=== PATIENT | male | born 1955 | race Caucasian/White ===

== ENCOUNTER → 2023-07-14 11:42 | Outpatient (BNVA) | payer MEDICARE, SELFPAY | PROVIDERS: Visit Provider Orthopaedic Surgery | DX: M54.50 Low back pain, unspecified (principal); M48.062 Spinal stenosis, lumbar region with neurogenic claudication | CPT/HCPCS: 72110; 99204 ==

== ENCOUNTER → 2024-11-22 13:23 | Outpatient (BNVA) | payer MEDICARE, SELFPAY | PROVIDERS: Visit Provider Orthopaedic Surgery | DX: M48.062 Spinal stenosis, lumbar region with neurogenic claudication (principal) | CPT/HCPCS: 36415; 80053; 81001; 85025; 99214 ==

== ENCOUNTER 2024-12-10 08:49 | Day surgery (SDC) | payer MEDICARE, SELFPAY ==
[2024-12-10] VITALS (10 sets, daily range): BP systolic 81–130; BP diastolic 58–78; PULSE 63–74; RESP 10–21; TEMP 35.7–36.5; O2SAT 93–99; BMI 41.5
[2024-12-10] MEDS: insulin regular-human 100 units/1 mL 10 UNIT IVP (10:21)
--- NOTE | 2024-12-10 10:26 | ANES.PREANE2 ---
Pre-Anesthetic Assessment Height/Weight: Height 6 ft 6 in Weight 360 lb Temp Pulse Resp BP Pulse Ox O2 Del Method 97.7 F 74 16 128/62 95 Room Air 12/10/24 09:27 12/10/24 09:27 12/10/24 09:27 12/10/24 09:27 12/10/24 09:27 12/10/24 09:27 Preop Diagnosis: Lumbar stenosis with neurogenic claudication Operation Date: 12/10/24 10:45 Proposed Procedures p Lumbar Spine Decompression(Not Applicable) - Vladislav Zimmer, DO Was Beta Candie taken within 24 hours: N/A Was Clonidine taken within 24 hours: N/A Last intake: Intake Last Liquid Date 12/09/24 Last Liquid Time 19:00 Last Solid Date 12/09/24 Last Solid Time 19:00 Social No alcohol and No tobacco Exam alert, oriented x 3, clear to auscultation bilaterally and regular rate & rhythm Airway Submandibular: within normal limits Cervical ROM: within normal limits Mallampati: Class III Dentition: full Anesthetic Plan ASA status: 3 Anesthesia: General Other: No prior issues with anesthesia NPO since yesterday evening History of of hypertension on HCTZ and valsartan BMI 41.6 DAKOTAH, no tx IDDM, patient was reportedly told to hold his long-acting insulin for the last week. Preop BS 273. Will plan on treating with insulin and rechecking prior to going to the OR Labs from 11/22/2024 reviewed acceptable for procedure. NA 139, K+ 4.3. Creatinine 1.3 at that time Plan for GETA Medications/Allergies Home Medications ?Medication ?Instructions ?Recorded ?Confirmed ?Last Taken ?Type atorvastatin 40 mg tablet 40 mg PO DAILY 07/14/23 12/07/24 12/07/24 History dapagliflozin propanediol 10 mg 10 mg PO QAM 07/14/23 12/07/24 12/07/24 History tablet (Farxiga) diltiazem HCl 120 mg capsule,24 120 mg PO DAILY 07/14/23 12/07/24 12/07/24 History hr,extended release gabapentin 100 mg capsule 100 mg PO TID 07/14/23 12/07/24 12/07/24 History hydrochlorothiazide 25 mg tablet 25 mg PO DAILY 07/14/23 12/07/24 12/07/24 History insulin degludec 200 unit/mL (3 See Rx Instructions SUBCUT DAILY 07/14/23 12/07/24 12/03/24 History mL) subcutaneous pen (Tresiba FlexTouch U-200 insulin) insulin lispro 200 unit/mL (3 mL) 20 unit SUBCUT BID 07/14/23 12/07/24 12/07/24 History subcutaneous pen (Humalog KwikPen U-200 Insulin) levothyroxine 75 mcg capsule 75 mcg PO DAILY 07/14/23 12/07/24 12/07/24 History metformin 500 mg tablet 500 mg PO BID 07/14/23 12/07/24 12/07/24 History rivaroxaban 20 mg tablet (Xarelto) 20 mg PO DAILY 07/14/23 12/07/24 12/02/24 History tirzepatide 5 mg/0.5 mL mg SUBCUT 07/14/23 11/22/24 12/02/24 History subcutaneous pen injector (Catrachounkimro) valsartan 80 mg tablet 80 mg PO DAILY 07/14/23 12/07/24 12/07/24 History Allergies Allergy/AdvReac Type Severity Reaction Status Date / Time No Known Allergies Allergy Verified 12/10/24 09:25 Current Medications Generic Name Dose Route Start Last Admin Trade Name Freq PRN Reason Stop Dose Admin Sodium Chloride 1,000 mls @ 30 mls/hr 12/10/24 09:15 12/10/24 09:53 Sodium Chloride 0.9% IV 12/11/24 09:14 30 mls/hr .Q24H NIKKIE Administration PFSH Anesthesia Social History Smoking and tobacco/nicotine status: never used tobacco/nicotine
--- NOTE | 2024-12-10 10:38 | W.PM.OPSUD ---
Surgery/Procedure H&P Update DATE OF PROCEDURE: December 10, 2024 DATE H&P PERFORMED: 11/22/24 H&P UPDATE INFORMATION: I have reviewed H&P completed within last 30 days, I have examined patient prior to procedure and No changes to prior documentation PREOP DIAGNOSIS: Lumbar stenosis with neurogenic claudication PLANNED PROCEDURE: Operation Date: 12/10/24 10:45 Proposed Procedures p Lumbar Spine Decompression(Not Applicable) - Vladislav Zimmer DO
[2024-12-10] MEDS: insulin regular-human 100 units/1 mL 20 UNIT IVP (10:59)
[2024-12-10] MEDS: ceFAZolin 3,000 MG in sodium chloride 0.9% (plus) 100 ML 200 MG IV (11:27)
[2024-12-10] MEDS: lidocaine-epi 1% 20 mL INJ 10 ML INJECTION (12:17)
--- NOTE | 2024-12-10 12:31 | PC.NURSE ---
Skin Tear While positioning patient into the prone position, patient developed a skin tear to the left lower arm. Site was dressed with an optifoam dressing.
--- NOTE | 2024-12-10 13:38 | P.OP_ITS ---
Operative Report Date of procedure: December 10, 2024 Pre-op diagnosis: Lumbar stenosis with neurogenic claudication Post-op diagnosis: same Procedure done: 1. L3/4 laminectomy with partial facetectomy 2. L4/5 laminectomy with partial facetectomy 3. L5/S1 laminectomy with partial facetectomy Surgeon: Vladislav Zimmer DO Estimated blood loss (mL): 15 Procedure: 1. L3/4 laminectomy with partial facetectomy 2. L4/5 laminectomy with partial facetectomy 3. L5/S1 laminectomy with partial facetectomy Patient is brought to the operative suite. After undergoing anesthesia they are placed in the prone position. All areas of impingement are well padded. Patient is then prepped and draped in the normal sterile fashion. A skin incision is made over the L3/4 level. This is confirmed under c-arm guidance. A series of dilators are passed and the tubular retractor is docked on the L3 lamina. A bovie is used to clear the soft tissue off the lamina and the L 3/4 facet joint. A high speed carmen is then used to perform the laminectomy and take down the medial aspect of the L 3/4 facet joint. A kerrison rongeure was then used to take down the remaining lamina and smooth the edge of the laminectomy up to the point where the ligamentum flavum attaches. Attention was then brought to the medial aspect of the facet joint. The remaining medial aspect of the superior and inferior aspect of the facet joint were taken down with the kerrison from the pedicle of L3 to L 4. The facet munira nt had significant hypertrophy. Attention was then brought to the Ligamentum Flavum. The ligament was taken down from the lamina of L3 to L4 and out medially to the remaining facet joint. The ligament was thick. The dura was then exposed. The dura was in good repair. The L4 nerve was then traced with a curette out the L3/4 foramen and found to be adequately decompressed. The L4 nerve was traced with a curette around the L4 pedicle. The lateral recess was opened with a kerrison helping to further decompress the L4 nerve. Wound is then irrigated copiously with saline and surgiflo is used to stop any bleeding. The tubular retractor is removed A skin incision is made over the L4/5 level. This is confirmed under c-arm guidance. A series of dilators are passed and the tubular retractor is docked on the L4 lamina. A bovie is used to clear the soft tissue off the lamina and the L 4/5 facet joint. A high speed carmen is then used to perform the laminectomy and take down the medial aspect of the L 4/5 facet joint. A kerrison rongeure was then used to take down the remaining lamina and smooth the edge of the laminectomy up to the point where the ligamentum flavum attaches. Attention was then brought to the medial aspect of the facet joint. The remaining medial aspect of the superior and inferior aspect of the facet joint were taken down with the kerrison from the pedicle of L4 to L 5. The facet joint had significant hypertrophy. Attention was then brought to the Ligamentum Flavum. The ligament was taken down from the lamina of L4 to L5 and out medially to the remaining facet joint. The ligament was thick. The dura was then exposed. The dura was in good repair. The L5 nerve was then traced with a curette out the L4/5 foramen and found to be adequately decompressed. The L5 nerve was traced with a curette around the L5 pedicle. The lateral recess was opened with a kerrison helping to further decompress the L5 nerve. Wound is then irrigated copiously with saline and surgiflo is used to stop any bleeding. The tubular retractor is removed A skin incision is made over the L5/S1 level. This is confirmed under c-arm guidance. A series of dilators are passed and the tubular retractor is docked on the L5 lamina. A bovie is used to clear the soft tissue off the lamina and the L 5/S1 facet joint. A high speed carmen is then used to perform the laminectomy and take down the medial aspect of the L 5/S1 facet joint. A kerrison rongeure was then used to take down the remaining lamina and smooth the edge of the laminectomy up to the point where the ligamentum flavum attaches. Attention was then brought to the medial aspect of the facet joint. The remaining medial aspect of the superior and inferior aspect of the facet joint were taken down with the kerrison from the pedicle of L5 to S1. The facet joint had significant hypertrophy. Attention was then brought to the Ligamentum Flavum. The ligament was taken down from the lamina of L5 to S1 and out medially to the remaining facet joint. The ligament was thick. The dura was then exposed. The dura was in good repair. The L5 nerve was then traced with a curette out the L5/S1 foramen and found to be adequately decompressed. The S1 nerve was traced with a curette around the S1 pedicle. The lateral recess was opened with a kerrison helping to further decompress the S1 nerve. Wound is then irrigated copiously with saline and surgiflo is used to stop any bleeding. The tubular retractor is removed and the wound is closed with vicryl and monocryl suture. Steri strips were applied. A sterile dressing is then placed. Patient was then placed in the supine position and transferred to the PACU in stable condition.
--- NOTE | 2024-12-10 14:32 | XR_ITS ---
WS: [id number] Exam: XR lumbar spine 2-3V* [id number] Date/Time of Exam: 12/10/2024 2:32 PM Reason For Exam: OR PIC, DECOMPRESSION DLP: Preoperative C-arm images of the lower lumbar spine are submitted. Images were obtained for preop localization purposes.
--- NOTE | 2024-12-10 15:05 | ANE.PACU2 ---
Inpatient post-anesthesia follow up: Airway intact: Yes Vital signs: Temperature 96.9 F Pulse Rate 63 Respiratory Rate 16 Blood Pressure 116/64 Pulse Oximetry 93 Oxygen Delivery Me thod Room Air Oxygen Flow Rate 6 Fraction of Inspir ed Oxygen Hydration adequate: Yes Nausea and vomiting: No Pain level: 1 Mental status: Baseline
== END 2024-12-10 13:05 | disposition home or self-care (01) ==
PROVIDERS: Visit Provider Orthopaedic Surgery
PROC: (CPT 63005; principal; 2024-12-10 10:35)
DX: M48.062 Spinal stenosis, lumbar region with neurogenic claudication (principal); I10 Essential (primary) hypertension; G47.33 Obstructive sleep apnea (adult) (pediatric); E11.9 Type 2 diabetes mellitus without complications; Z79.4 Long term (current) use of insulin; Z79.84 Long term (current) use of oral hypoglycemic drugs
CPT/HCPCS: 63047; 63048 ×2; 36416; 72100; 76000; 82962; J0690; J1100; J1815; J2405; J2704; J2710; J3010; J3490; J7030; J9999

== ENCOUNTER → 2024-12-27 12:32 | Outpatient (BNVA) | payer MEDICARE, SELFPAY | PROVIDERS: Visit Provider Orthopaedic Surgery | DX: Z98.890 Other specified postprocedural states (principal) | CPT/HCPCS: 99024 ==

== ENCOUNTER → 2025-01-17 12:17 | Outpatient (BNVA) | payer MEDICARE, SELFPAY | PROVIDERS: Visit Provider Orthopaedic Surgery | DX: Z98.890 Other specified postprocedural states (principal) | CPT/HCPCS: 99024 ==